=== PATIENT | male | born 1965 | race Caucasian/White ===

== ENCOUNTER 2019-07-18 11:03 | Outpatient (CLI) | payer OTHER ==
--- NOTE | 2019-07-18 13:11 | ULT ---
LIMITED SOFT TISSUE ULTRASOUND: DATE: 07/18/2019. PROVIDED CLINICAL HISTORY: Bulging area in the left lower quadrant. FINDINGS: Limited sonographic interrogation was performed of the left lower quadrant abdominal wall. There is no sonographic evidence for hernia or mass. IMPRESSION: No sonographic correlate in the region of concern. If there is persistent clinical concern, recommen d CT. POS: [facility]
== END 2019-07-18 11:04 | disposition home or self-care (01) ==
LOC: SCSULT 11:03
PROVIDERS: ATTEND Family Medicine
DX: K46.9 Unspecified abdominal hernia without obstruction or gangrene (principal)
CPT/HCPCS: 76705